=== PATIENT | female | born 1945 | race Caucasian/White ===

== ENCOUNTER 2016-09-13 11:54 | Emergency (ER) | payer OTHER ==
[2016-09-13 12:00] VITALS: BMI 21.2
--- NOTE | 2016-09-13 12:01 | PDOC ---
History of Present Illness - General Chief Complaint: Respiratory Stated Complaint: COUGH Time Seen by Provider: 09/13/16 12:01 History Source: Patient, Family, Old Records Exam Limitations: No Limitations - History of Present Illness Initial Comments: 09/13/16 12:05 71 y/o female with h/o HTN and CVA x 2 many years ago presents to the ED with her family stating that she has had 9 day h/o non-productive cough and subjective fevers and chills at home. She states that she has chronic chest pain and difficulty breathing but over the past week the pain is worsened when she coughs. She denies LE edema. She has had a sick contact at home--her grandson has had fever and URI Sx., Past History - Past Medical History Allergies/Adverse Reactions: Allergies Allergy/AdvReac Type Severity Reaction Status Date / Time Penicillins Allergy Verified 09/13/16 11:55 Home Medications: Ambulatory Orders Amlodipine Besylate 5 mg PO DAILY 09/13/16 Clopidogrel Bisulfate [Clopidogrel] 75 mg PO DAILY 09/13/16 Metoprolol Succinate [Toprol Xl -] 25 mg PO DAILY 09/13/16 Oseltamivir Phosphate [Tamiflu] 75 mg PO BID #10 capsule 09/13/16 CVA: Yes HTN: Yes - Psycho/Social/Smoking Cessation Hx Anxiety: No Suicidal Ideation: No Smoking History: Never smoked Information on smoking cessation initiated: No Hx Alcohol Use: No Drug/Substance Use Hx: No Review of Systems - Review of Systems Able to Perform ROS?: Yes Is the patient limited Somali proficient: Yes Constitutional: Yes: Chills, Fever HEENTM: No: Symptoms Reported Respiratory: Yes: Cough, Shortness of Breath Cardiac (ROS): Yes: Chest Pain ABD/GI: No: Symptoms Reported : No: Symptoms Reported Musculoskeletal: No: Symptoms Reported Integumentary: No: Symptoms Reported *Physical Exam - Vital Signs Last Vital Signs Temp Pulse Resp BP Pulse Ox 99.2 F 83 20 144/54 99 09/13/16 11:55 09/13/16 11:55 09/13/16 11:55 09/13/16 11:55 09/13/16 11:55 - Physical Exam Comments: 09/13/16 12:04 GENERAL: Well developed, well nourished. Awake and alert. No acute distress. HEENT: Normocephalic, atraumatic. PERRLA, EOMI. No conjunctival pallor. Sclera are non- icteric. Moist mucous membranes. Oropharynx is clear. NECK: Supple. Full ROM. No JVD. No lymphadenopathy. CARDIOVASCULAR: Regular rate and rhythm. There is a systolic murmur. No rubs, or gallops. Distal pulses are 2+ and symmetric. PULMONARY: No evidence of respiratory distress. Lungs clear to auscultation bilaterally. No wheezing, rales or rhonchi. ABDOMINAL: Soft. Non-tender. Non-distended. No rebound or guarding. No organomegaly. Normoactive bowel sounds. MUSCULOSKELETAL Normal range of motion at all joints. No bony deformities or tenderness. No CVA tenderness. EXTREMITIES: No cyanosis. No clubbing. No edema. No calf tenderness. SKIN: Warm and dry. Normal capillary refill. No rashes. No jaundice. NEUROLOGICAL: Alert, awake, appropriate. Cranial nerves 2-12 intact. Grossly non-focal exam. PSYCHIATRIC: Cooperative. Good eye contact. Appropriate mood and affect. ED Treatment Course - LABORATORY CBC & Chemistry Diagram: 09/13/16 12:15 09/13/16 12:15 Medical Decision Making - Medical Decision Making 09/13/16 12:07 71 y/o female with h/o HTN and CVA who presents to the ED with c/o 9 day h/o cough, fevers and chills as well as CP and SOB. Her rectal temp is 100.2F in the ED and her oxygen saturation is 99% on RA. DDx includes but is not limited to:influenza, PNA, CHF, ACS, electrolyte abnormality, dehydration, toxic/ metabolic derangement. Plan: 1. EKG 2. Labs and urine 3. CXR 4. Influenza PCR 5. Observe and re-evaluate 09/13/16 13:55 Addendum:P Labs results were reviewed and are noted in the EMR. The patient has tested positive for influenza A. Her CXR shows ?LLL infiltrate. The patient is oxygenating well and has no elevated WBC. Since she is elderly, I will treat with Tamiflu 75mg BID x 5 days. I have instructed the patient ot follow-up with her PCP within 3 days. I have also instructed the patient to return to the ED if her Sx persist, worsen or new Sx arise. *DC/Admit/Observation/Transfer Diagnosis at time of Disposition: URI due to influenza A virus Diagnosis at time of Disposition: (Ruled Out): URI, acute - Discharge Dispostion Disposition: HOME Condition at time of disposition: Stable Admit: No - Prescriptions Prescriptions: Oseltamivir Phosphate [Tamiflu] 75 mg PO BID #10 capsule - Patient Instructions Printed Discharge Instructions: DI for Influenza -- Adult Additional Instructions: You have tested positive for influenza A. You have been given one dose of Tamiflu inthe ED and have been prescribed Tamiflu 75mg--take one tablet twice per day for the next 5 days. Please follow-up with your primary care physician within the next 3 days. You may take Tylenol or Motrin for fever. Return to the Emergency Department if your symptoms persist, worsen or new symptoms arise. Print Language: [place]
[2016-09-13] MEDS ORDERED: ACETAMINOPHEN 500 MG TABLET (FP) PO ONE (12:34)
[2016-09-13 12:39] LABS: BASOPHIL 0.3 % (0-2.0); EOSINOPHIL 0.2 % (0-4.5); MCH 28.5 pg (25.7-33.7); MCHC 32.6 g/dl (32.0-36.0); MEAN CELL VOLUME 87.4 fl (80-96); MEAN PLT VOLUME 7.1 fl (7.5-11.1); NEUTROPHILS 50.8 % (42.8-82.8); PLATELET COUNT 220 K/MM3 (134-434); RDW 12.8 % (11.6-15.6); WHITE BLOOD COUNT 5.7 K/mm3 (4.0-10.0)
[2016-09-13] MEDS ORDERED: ACETAMINOPHEN 325 MG TABLET (FP) ONE (12:48)
[2016-09-13 13:02] LABS: ALBUMIN 3.4 g/dl (3.5-5.0); BILIRUBIN,TOTAL 0.6 mg/dl (0.2-1.0); CALCIUM 10.1 mg/dl (8.4-10.2); CPK(DFH) 58 IU/L (26-140); PHOSPHOROUS 3.4 mg/dl (2.5-4.6); TOT PROT 8.4 g/dl (6.4-8.3)
[2016-09-13 13:27] LABS: TROPONIN I (DFP) < 0.03 ng/ml (0.03-0.50)
[2016-09-13] MEDS ORDERED: OSELTAMIVIR PHOSPHATE 75 MG CAPSULE PO ONE (13:50)
[2016-09-13] MEDS ORDERED: OSELTAMIVIR PHOSPHATE 75 MG CAPSULE ONE (13:51)
[2016-09-13 14:12] VITALS: BP 132/58; PULSE 86; TEMP 98.2
--- NOTE | 2016-09-13 23:32 | EKG ---
Test Reason : Blood Pressure : / mmHG Vent. Rate : 068 BPM Atrial Rate : 068 BPM P-R Int : 156 ms QRS Dur : 118 ms QT Int : 408 ms P-R-T Axes : 067 087 062 degrees QTc Int : 433 ms NORMAL SINUS RHYTHM RIGHT BUNDLE BRANCH BLOCK ABNORMAL ECG WHEN COMPARED WITH ECG OF 02-OCT-2010 09:03, RIGHT BUNDLE BRANCH BLOCK IS NOW PRESENT Confirmed by AZALIA CONWAY, ERVIN ([id number]) on 09/13/2016 11:31:36 PM Referred By: MD SEPULVEDA Confirmed By:ERVIN VIEYRA MD
== END 2016-09-13 14:10 | disposition home or self-care (01) ==
LOC: FER 11:54
DX: J09.X2 Influenza due to identified novel influenza A virus with other respiratory manifestations (principal); I10 Essential (primary) hypertension; Z86.73 Personal history of transient ischemic attack (TIA), and cerebral infarction without residual deficits
CPT/HCPCS: 36415; 71010-TC; 80053; 82550; 83605; 83735; 83880; 84100; 84484; 85025; 87804; 93005; 99285-25

== ENCOUNTER 2018-04-08 18:17 | Inpatient (IN) | payer OTHER ==
--- NOTE | 2018-04-08 18:32 | PDOC ---
History of Present Illness - General History Source: Patient Exam Limitations: No Limitations - History of Present Illness Initial Comments: 04/08/18 19:25 The patient is a 72 year old female with a significant PMH of a stroke about 20 years ago (on plavix), hypertension, diabetes, depression and CVA who presents to the emergency department with hematuria today. The patients daughter reports that the patient was seen at [facility] about 2 days ago by which she was diagnosed with a UTI. the patient's family states that today, they noticed blood in her urine with clots. The patient denies any dysuria or other urinary symptoms. She denies any abdominal pain. The patient denies any other symptoms. She denies any fever, chills, nausea, vomit, diarrhea and constipation. She denies chest pain, shortness of breath, headache and dizziness. The patient denies any other complaints. PCP: Dr. Landaverde <J Carlos Miller - Last Filed: 04/08/18 19:25> <Claudia Torres - Last Filed: 04/10/18 12:27> - General Chief Complaint: Hematuria Stated Complaint: HEMATURIA Time Seen by Provider: 04/08/18 18:18 Past History <J Carlos Miller - Last Filed: 04/08/18 19:25> - Past Medical History CVA: Yes HTN: Yes - Suicide/Smoking/Psychosocial Hx Smoking History: Never smoked Hx Alcohol Use: No Drug/Substance Use Hx: No <Claudia Torres - Last Filed: 04/10/18 12:27> - Past Medical History Allergies/Adverse Reactions: Allergies Allergy/AdvReac Type Severity Reaction Status Date / Time Penicillins Allergy Verified 04/08/18 18:23 Home Medications: Ambulatory Orders Amlodipine Besylate 10 mg PO DAILY 09/13/16 Metoprolol Succinate [Toprol Xl -] 50 mg PO DAILY 09/13/16 Amitriptyline HCl 25 mg PO DAILY 04/08/18 Calcium Carbonate/Vitamin D3 [Calcium 600 + D3 Softgel] 1 each PO DAILY Clopidogrel Bisulfate [Clopidogrel] 75 mg PO DAILY 04/08/18 Hydrochlorothiazide [Hctz -] 25 mg PO DAILY 04/08/18 Levofloxacin [Levaquin] 250 mg PO DAILY 04/08/18 Naproxen 500 mg PO BID 04/08/18 Omeprazole 20 mg PO DAILY 04/08/18 Review of Systems - Review of Systems Able to Perform ROS?: Yes Comments:: 04/08/18 19:25 GENERAL/CONSTITUTIONAL: No fever or chills. No weakness. HEAD, EYES, EARS, NOSE AND THROAT: No change in vision. No ear pain or discharge. No sore throat. CARDIOVASCULAR: No chest pain or shortness of breath. RESPIRATORY: No cough, wheezing, or hemoptysis. GASTROINTESTINAL: No nausea, vomiting, diarrhea or constipation. GENITOURINARY: (+) Hematuria. No dysuria, frequency, or change in urination. MUSCULOSKELETAL: No joint or muscle swelling or pain. No neck or back pain. SKIN: No rash NEUROLOGIC: No headache, vertigo, loss of consciousness, or change in strength/ sensation. ENDOCRINE: No increased thirst. No abnormal weight change. HEMATOLOGIC/LYMPHATIC: No anemia, easy bleeding, or history of blood clots. ALLERGIC/IMMUNOLOGIC: No hives or skin allergy. <J Carlos Miller - Last Filed: 04/08/18 19:25> *Physical Exam - Vital Signs Last Vital Signs Temp Pulse Resp BP Pulse Ox 98.0 F 89 18 123/42 99 04/08/18 18:17 04/08/18 18:17 04/08/18 18:17 04/08/18 18:17 04/08/18 18:17 - Physical Exam Comments: 04/08/18 19:26 GENERAL: Awake, alert, and fully oriented, in no acute distress HEAD: No signs of trauma EYES: (+0dry conjunctiva. PERRLA, EOMI, sclera anicteric ENT: Auricles normal inspection, hearing grossly normal, nares patent, oropharynx clear without exudates. Moist mucosa NECK: Normal ROM, supple, no lymphadenopathy, JVD, or masses LUNGS: Breath sounds equal, clear to auscultation bilaterally. No wheezes, and no crackles HEART: Regular rate and rhythm, normal S1 and S2, no murmurs, rubs or gallops ABDOMEN: Soft, nontender, normoactive bowel sounds. No guarding, no rebound. No masses EXTREMITIES: Normal range of motion, no edema. No clubbing or cyanosis. No cords, erythema, or tenderness NEUROLOGICAL: Cranial nerves II through XII grossly intact. Normal speech, normal gait SKIN: Warm, Dry, normal turgor, no rashes or lesions noted. <J Carlos Miller - Last Filed: 04/08/18 19:25> ED Treatment Course - LABORATORY CBC & Chemistry Diagram: 04/08/18 18:50 04/08/18 18:50 - ADDITIONAL ORDERS Additional order review: Laboratory Results 04/08/18 08 18:50 18:30 PT with INR 14.2 H INR 1.27 H Urine Color Rebecca Urine Appearance Cloudy Urine pH 6.5 Ur Specific [place] 1.015 Urine Protein 3+ H Urine Glucose (UA) Negative Urine Ketones Trace Urine Blood 3+ H Urine Nitrite Positive Urine Bilirubin 2+ H Urine Urobilinogen 1.0 Ur Leukocyte Esterase 1+ H Urine RBC >100 Urine WBC 10-20 Ur Epithelial Cells Few Amorphous Urates Few Urine Bacteria Few 04/08/18 18:50 RBC 3.87 MCV 89.7 MCHC 32.8 RDW 12.6 MPV 7.8 Neutrophils % 61.7 Lymphocytes % 30.3 Monocytes % 7.3 Eosinophils % 0.4 Basophils % 0.3 <J Carlos Miller - Last Filed: 04/08/18 19:25> - LABORATORY CBC & Chemistry Diagram: 04/10/18 07:00 04/10/18 07:00 <Claudia Torres - Last Filed: 04/10/18 12:27> Medical Decision Making - Medical Decision Making 04/08/18 18:29 a/p: 72yo female with hx of cva 20yrs ago on plavix for the cva presents for eval of hematuria -hematuria started on Monday - pt seen at [facility] and dx with a UTI - given abx. Pt underwent labs and ct imaging at the time -today passing clots and urine stream weak. -no f/c -no abd pain, no n/v/d. -over last few months - decreased PO intake -family at the bedside, pt is hungarian speaking -will send labs, ua, ucx -will call [facility] for CT imaging results -pt currently on levaquin for the UTI from [facility] 04/08/18 18:51 ua +blood, protein, leuk esterase, micro pending 04/08/18 18:52 pt with hematuria and dx with a uti on monday at [facility]. Currently on Levaquin 250mg po daily. Labs pending. Pt is nontoxic in appearance. Family concerned because she was passing clots, however, no abd pain, no n/v/d, no f/c. Pt will be signed out to the oncoming ED physician pending labs and obtain data from [facility]. Family updated on the plan. <Claudia Torres - Last Filed: 04/10/18 12:27> *DC/Admit/Observation/Transfer - Attestations Scribe Attestion: 04/08/18 19:26 Documentation prepared by J Carlos Miller, acting as ophthalmic medical technologist for Claudia Torres MD. <J Carlos Miller - Last Filed: 04/08/18 19:25> - Attestations Physician Attestion: 04/08/18 18:54 I, Dr. Claudia Torres, DO, attest that this document has been prepared under my direction and personally reviewed by me in its entirety. I further attest, that it accurately reflects all work, treatment, procedures and medical decision -making performed by me. <Claudia Torres - Last Filed: 04/10/18 12:27> Diagnosis at time of Disposition: Acute cystitis with hematuria
[2018-04-08 18:50] LABS: PH,URINE 6.5 (4.5-8); URINE APPEARANCE Cloudy; URINE BILIRUBIN 2+ (NEGATIVE); URINE COLOR Amber; URINE GLUCOSE (UA) Negative (NEGATIVE); URINE KETONE Trace (NEGATIVE); URINE LEUK ESTERASE 1+ (NEGATIVE); URINE NITRITE Positive (NEGATIVE); URINE PROTEIN 3+ (NEGATIVE)
[2018-04-08 19:04] LABS: AMORP URATES FEW /hpf (NONE SEEN); EPI CELLS FEW /HPF; URINE BACTERIA FEW /hpf (NEGATIVE); URINE RBC >100 /hpf (0-3)
[2018-04-08 19:15] LABS: BASO % 0.3 % (0-2.0); EOS % 0.4 % (0-4.5); HEMATOCRIT 34.7 % (32.4-45.2); HEMOGLOBIN 11.4 GM/dl (10.7-15.3); LYMPH % 30.3 % (8-40); MCH 29.4 pg (25.7-33.7); MCHC 32.8 g/dl (32.0-36.0); MEAN CELL VOLUME 89.7 fl (80-96); MEAN PLT VOLUME 7.8 fl (7.5-11.1); MONO % 7.3 % (3.8-10.2); NEUT % 61.7 % (42.8-82.8); PLATELET COUNT 295 K/MM3 (134-434); RBC 3.87 M/mm3 (3.60-5.2); RDW 12.6 % (11.6-15.6); WHITE BLOOD COUNT 9.7 K/mm3 (4.0-10.8)
[2018-04-08 19:20] LABS: INR 1.27 (0.82-1.09); PROTHROMBIN TIME (PATIENT) 14.2 SEC (10.2-13.0)
[2018-04-08 19:22] LABS: ALBUMIN 3.1 g/dl (3.5-5.0); ALK PHOS 99 U/L (32-92); ANION GAP 8 MMOL/L (8-16); BILIRUBIN,TOTAL 0.9 mg/dl (0.2-1.0); BLOOD UREA NITROGEN 41 mg/dl (7-18); CALCIUM 9.9 mg/dl (8.4-10.2); CHLORIDE 101 mmol/L (98-107); CO2 23 mmol/L (22-28); CREATININE 2.2 mg/dl (0.6-1.3); GLUCOSE,RANDOM 179 mg/dl (74-106); POTASSIUM 4.1 mmol/L (3.5-5.1); SGOT/AST 27 U/L (10-42); SGPT/ALT 8 U/L (10-40); SODIUM 132 mmol/L (136-145); TOT PROT 8.2 g/dl (6.4-8.3)
--- NOTE | 2018-04-08 19:53 | PDOC ---
*Physical Exam - Vital Signs Last Vital Signs Temp Pulse Resp BP Pulse Ox 98.0 F 89 18 123/42 99 04/08/18 18:17 04/08/18 18:17 04/08/18 18:17 04/08/18 18:17 04/08/18 18:17 - Physical Exam General Appearance: Yes: Nourished Cardiovascular: positive: Regular Rhythm ED Treatment Course - LABORATORY CBC & Chemistry Diagram: 04/08/18 18:50 04/08/18 18:50 - ADDITIONAL ORDERS Additional order review: Laboratory Results 04/08/18 04/08/18 04/08/18 18:50 18:50 18:50 PT with INR 14.2 H INR 1.27 H PTT (Actin FS) Sodium 132 L Potassium 4.1 Chloride 101 Carbon Dioxide 23 Anion Gap 8 BUN 41 H Creatinine 2.2 H Creat Clearance w eGFR 21.94 Random Glucose 179 H D Calcium 9.9 Magnesium 2.0 Total Bilirubin 0.9 AST 27 ALT 8 L D Alkaline Phosphatase 99 H Total Protein 8.2 Albumin 3.1 L Urine Color Urine Appearance Urine pH Ur Specific [place] Urine Protein Urine Glucose (UA) Urine Ketones Urine Blood Urine Nitrite Urine Bilirubin Urine Urobilinogen Ur Leukocyte Esterase Urine RBC Urine WBC Ur Epithelial Cells Amorphous Urates Urine Bacteria Blood Type Cancelled Antibody Screen Cancelled 04/08/18 04/08/18 18:50 18:30 PT with INR INR PTT (Actin FS) 32.1 Sodium Potassium Chloride Carbon Dioxide Anion Gap BUN Creatinine Creat Clearance w eGFR Random Glucose Calcium Magnesium Total Bilirubin AST ALT Alkaline Phosphatase Total Protein Albumin Urine Color Rebecca Urine Appearance Cloudy Urine pH 6.5 Ur Specific [place] 1.015 Urine Protein 3+ H Urine Glucose (UA) Negative Urine Ketones Trace Urine Blood 3+ H Urine Nitrite Positive Urine Bilirubin 2+ H Urine Urobilinogen 1.0 Ur Leukocyte Esterase 1+ H Urine RBC >100 Urine WBC 10-20 Ur Epithelial Cells Few Amorphous Urates Few Urine Bacteria Few Blood Type Antibody Screen 04/08/18 18:50 RBC 3.87 MCV 89.7 MCHC 32.8 RDW 12.6 MPV 7.8 Neutrophils % 61.7 Lymphocytes % 30.3 Monocytes % 7.3 Eosinophils % 0.4 Basophils % 0.3 Medical Decision Making - Medical Decision Making 04/09/18 00:05 Patient signed out to me pending labs was seen and diagnosed with cystitis status post CT scan labs and urinalysis at noon at [facility] on Monday has had hematuria and passage of clots today returned to near [facility] for continued passage of blood clots however secondary to long wait patient and family decided to come to [facility] for evaluation Here in the emergency department her laboratory analysis is notable for creatinine of 2.2. I had blood work faxed from [facility] a urine culture has not been resulted yet her creatinine on Monday was 1.71 year ago creatinine was 1.0 given creatinine today of 2.2 we will observe the patient overnight for IV fluids for further management of acute kidney injury. *DC/Admit/Observation/Transfer Diagnosis at time of Disposition: Acute cystitis with hematuria - Discharge Dispostion Decision to Admit order: Yes - Referrals - Patient Instructions - Post Discharge Activity
[2018-04-08] MEDS ORDERED: SODIUM CHLORIDE 0.9% 1000 ML INFUS.BAG IV ONE (20:43)
--- NOTE | 2018-04-08 22:07 | HP ---
CHIEF COMPLAINT: hematuria PCP: Saima HISTORY OF PRESENT ILLNESS: This is a 72 year old female with a significant past medical history of CVA on plavix, HTN, preDM who presented to the ED with hematuria with clots. Pt was evaluated at [facility] for same on Monday night into Monday. She was diagnosed with a UTI and started on levaquin. She came to the ED because the family noticed she passed a blood clot when they were showering her around noon. Pt denies pain, dysuria, frequency. Family reports that she is normally incontinent of urine. NO further clots since noon. diapers are wet as normal. ER course was notable for: (1) Cr 2.2 (2) u/a with RBC and WBC (3) Na 132 Recent Travel: pt denies PAST MEDICAL HISTORY: CVA 20+ years ago, HTN, preDM, Depression PAST SURGICAL HISTORY: pt denies Social History: Smoking: pt denies Alcohol: pt denies Drugs: pt denies Family History: mother age 99, h/o HTN father age 95, h/o "cardiac condition" and Alzheimers brother stomach ca, h/o DM brother , DM, ESRD/dialysis 2 sisters alive with HTN Allergies Penicillins Allergy (Verified 04/08/18 18:23)-family reports anaphylaxis HOME MEDICATIONS: 3 Medication Instructions Recorded Amlodipine Besylate 10 mg PO DAILY 09/13/16 Metoprolol Succinate [Toprol Xl -] 50 mg PO DAILY 09/13/16 Amitriptyline HCl 25 mg PO DAILY 04/08/18 Calcium Carbonate/Vitamin D3 1 each PO DAILY 04/08/18 [Calcium 600 + D3 Softgel] Clopidogrel Bisulfate [Clopidogrel] 75 mg PO DAILY 04/08/18 Hydrochlorothiazide [Hctz -] 25 mg PO DAILY 04/08/18 Levofloxacin [Levaquin] 250 mg PO DAILY 04/08/18 Naproxen 500 mg PO BID 04/08/18 Omeprazole 20 mg PO DAILY 04/08/18 REVIEW OF SYSTEMS CONSTITUTIONAL: Absent: fever, chills, diaphoresis, generalized weakness, malaise, loss of appetite, weight change HEENT: Absent: rhinorrhea, nasal congestion, throat pain, throat swelling, difficulty swallowing, mouth swelling, ear pain, eye pain, visual changes CARDIOVASCULAR: Absent: chest pain, syncope, palpitations, irregular heart rate, lightheadedness , peripheral edema RESPIRATORY: Absent: cough, shortness of breath, dyspnea with exertion, orthopnea, wheezing, stridor, hemoptysis GASTROINTESTINAL: Absent: abdominal pain, abdominal distension, nausea, vomiting, diarrhea, constipation, melena, hematochezia GENITOURINARY: Present: hematuria Absent: dysuria, frequency, urgency, hesitancy, flank pain, genital pain MUSCULOSKELETAL: Absent: myalgia, arthralgia, joint swelling, back pain, neck pain SKIN: Absent: rash, itching, pallor HEMATOLOGIC/IMMUNOLOGIC: Absent: easy bleeding, easy bruising, lymphadenopathy, frequent infections ENDOCRINE: Absent: unexplained weight gain, unexplained weight loss, heat intolerance, cold intolerance NEUROLOGIC: Absent: headache, focal weakness or paresthesias, dizziness, unsteady gait, seizure, mental status changes, bladder or bowel incontinence PSYCHIATRIC: Absent: anxiety, depression, suicidal or homicidal ideation, hallucinations. PHYSICAL EXAMINATION 3 04/08/18 18:17 Temperature 98.0 F Pulse Rate 89 Respiratory 18 Rate Blood Pressure 123/42 O2 Sat by Pulse 99 Oximetry (%) GENERAL: Awake, alert, and fully oriented, in no acute distress. HEAD: Normal with no signs of trauma. EYES: Pupils equal, round and reactive to light, extraocular movements intact, sclera anicteric, conjunctiva clear. No lid lag. EARS, NOSE, THROAT: Ears normal, nares patent, oropharynx clear without exudates. Moist mucous membranes. NECK: Normal range of motion, supple without lymphadenopathy, JVD, or masses. LUNGS: Breath sounds equal, clear to auscultation bilaterally. No wheezes, and no crackles. No accessory muscle use. HEART: Regular rate and rhythm, normal S1 and S2 without murmur, rub or gallop. ABDOMEN: Soft, nontender, not distended, normoactive bowel sounds, no guarding, no rebound, no masses. No hepatomegaly or splenomegaly. MUSCULOSKELETAL: Normal range of motion at all joints. No bony deformities or tenderness. No CVA tenderness. UPPER EXTREMITIES: 2+ pulses, warm, well-perfused. No cyanosis. No clubbing. No peripheral edema. LOWER EXTREMITIES: 2+ pulses, warm, well-perfused. No calf tenderness. No peripheral edema. NEUROLOGICAL: Cranial nerves II-XII intact. Normal speech. Normal gait. PSYCHIATRIC: Cooperative. Good eye contact. Appropriate mood and affect. SKIN: Warm, dry, normal turgor, no rashes or lesions noted, normal capillary refill. skin tear right buttock Laboratory Results - last 24 hr 3 04/08/18 04/08/18 04/08/18 18:30 18:50 18:50 WBC RBC Hgb Hct MCV MCH MCHC RDW Plt Count MPV Absolute Neuts (auto) Neutrophils % Lymphocytes % Monocytes % Eosinophils % Basophils % PT with INR INR PTT (Actin FS) 32.1 Sodium 132 L Potassium 4.1 Chloride 101 Carbon Dioxide 23 Anion Gap 8 BUN 41 H Creatinine 2.2 H Creat Clearance w eGFR 21.94 Random Glucose 179 H D Calcium 9.9 Magnesium 2.0 Total Bilirubin 0.9 AST 27 ALT 8 L D Alkaline Phosphatase 99 H Total Protein 8.2 Albumin 3.1 L Urine Color Rebecca Urine Appearance Cloudy Urine pH 6.5 Ur Specific [place] 1.015 Urine Protein 3+ H Urine Glucose (UA) Negative Urine Ketones Trace Urine Blood 3+ H Urine Nitrite Positive Urine Bilirubin 2+ H Urine Urobilinogen 1.0 Ur Leukocyte Esterase 1+ H Urine RBC >100 Urine WBC 10-20 Ur Epithelial Cells Few Amorphous Urates Few Urine Bacteria Few Blood Type Antibody Screen 3 04/08/18 04/08/18 04/08/18 18:50 18:50 18:50 WBC 9.7 RBC 3.87 Hgb 11.4 Hct 34.7 MCV 89.7 MCH 29.4 MCHC 32.8 RDW 12.6 Plt Count 295 MPV 7.8 Absolute Neuts (auto) 6.1 Neutrophils % 61.7 Lymphocytes % 30.3 Monocytes % 7.3 Eosinophils % 0.4 Basophils % 0.3 PT with INR 14.2 H INR 1.27 H PTT (Actin FS) Sodium Potassium Chloride Carbon Dioxide Anion Gap BUN Creatinine Creat Clearance w eGFR Random Glucose Calcium Magnesium Total Bilirubin AST ALT Alkaline Phosphatase Total Protein Albumin Urine Color Urine Appearance Urine pH Ur Specific [place] Urine Protein Urine Glucose (UA) Urine Ketones Urine Blood Urine Nitrite Urine Bilirubin Urine Urobilinogen Ur Leukocyte Esterase Urine RBC Urine WBC Ur Epithelial Cells Amorphous Urates Urine Bacteria Blood Type Cancelled Antibody Screen Cancelled ECG Normal sinus rhythm vent rate 74, QTC 477 RBBB new T wave inversions lead 3 & v3 when c/w ECG 09/13/[address] Abd/pelvis with/without contrast @ [facility] 04/07/18 Impression: Distended, thick walled bladder with no focal intraluminal mass or filling defect. Findings may be secondary to cystitis. Correlate with urinalysis and symptoms. Normal kidneys and ureters with no hydronephrosis, renal stone, renal mass or ureteral filling defect. No evidence of malignancy within the abdomen or pelvis. Mosaic attenuation and ground-glass opacities scattered through both lower lobes may be secondary to pulmonary venous congestion. No large pleural effusion or consolidation. ASSESSMENT/PLAN: 72yF with PMH CVA 20+ years ago, HTN, preDM, Depression presented to the ED with hematuria with clots. UTI with hematuria - cont home levaquin po x 5 more days, follow culture results. Culture not sent from [facility] with labs/CT, f/u in am - if hematuria not improving, urology consult - hold home plavix and naproxen NESS - cr 2.2 today, 1.7 04/07/17 and 1.0 on 09/13/16 - received IV contrast at [facility], ? partial MERY? as well as hypovolemia (BUN 41 ) - cont gentle IV hydration, if not improved on am labs, renal consult - hold home naproxen hyponatremia - mild - hold HCTZ, renal consult if not improving on am labs HTN - cont home norvasc and toprol preDM - Glucose 179, A1C ordered - BGM AC/HS with novolog SS DVT PPX - hold heparin due to bleeding FEN - NS @ 75cc/hr - bmp in am - low sodium/diabetic diet as tolerated Dispo: Pt currently requires further observation. Visit type - Emergency Visit Emergency Visit: Yes ED Registration Date: 04/08/18 Care time: The patient presented to the Emergency Department on the above date and was hospitalized for further evaluation of their emergent condition. - New Patient This patient is new to me today: Yes Date on this admission: 04/09/18 - Critical Care Critical Care patient: No Hospitalist Screening - Colonoscopy Questionnaire Colonoscopy Questionnaire: Colonoscopy Questionnaire - Patient: 50 - 75 years old and never had a screening colonoscopy: Yes History of colon or rectal polyps, or CA: No History of IBD, Crohn's disease or UC: No History of abdominal radiation therapy as a child: No - Relative: 1 with colon or rectal CA, or polyps at age 60 or younger: No Colon or rectal CA diagnosed at age 45 or younger: No Multiple relatives with colon or rectal CA: No - Outcome: Screening Result: Positive Screen
[2018-04-08] MEDS ORDERED: SODIUM CHLORIDE 1,000 ML IV SCH (22:45)
[2018-04-09 00:35] VITALS: BMI 23.8
[2018-04-09] MEDS: INSULIN SLIDING SCALE (NOVOLOG) 1 VIAL SQ SCH ×4 (06:33→22:03)
--- NOTE | 2018-04-09 07:40 | PN ---
Physical Exam: SUBJECTIVE: Patient seen and examined, patient reports feeling much improved, does report generalized weakness, pink tinged urine noted this AM OBJECTIVE:This is a 72 year old female with a significant past medical history of CVA on plavix, HTN, preDM, patient was admitted from the emergency department for hematuria. Vital Signs Period Temp Pulse Resp BP Sys/Mcmullen Pulse Ox Last 24 Hr 98.0 F-98.1 F 72-89 18-18 123-128/38-42 98-99 GENERAL: The patient is awake, alert, and fully oriented, in no acute distress. HEAD: Normal with no signs of trauma. EYES: PERRL, extraocular movements intact, sclera anicteric, conjunctiva clear. No ptosis. ENT: Ears normal, nares patent, oropharynx clear without exudates, moist mucous membranes. NECK: Trachea midline, full range of motion, supple. LUNGS: Breath sounds equal, clear to auscultation bilaterally, no wheezes, no crackles, no accessory muscle use. HEART: Regular rate and rhythm, S1, S2 without murmur, rub or gallop. ABDOMEN: Soft, nontender, nondistended, normoactive bowel sounds, no guarding, no rebound, no hepatosplenomegaly, no masses. : blood tinged urine noted on incontinence brief, limited pelvic exam secondary to ROM of bilateral hips, no obivious bleeding noted to vaginal openning EXTREMITIES: 2+ pulses, warm, well-perfused, no edema. NEUROLOGICAL: Cranial nerves II through XII grossly intact. Normal speech, gait not observed. PSYCH: Normal mood, normal affect. SKIN: Warm, dry, normal turgor, no rashes or lesions noted Laboratory Results - last 24 hr CBC WBC 7.0 K/mm3 (4.0-10.8) 04/09/18 07:01 RBC 3.23 M/mm3 (3.60-5.2) L 04/09/18 07:01 Hgb 9.9 GM/dl (10.7-15.3) L 04/09/18 07:01 Hct 28.7 % (32.4-45.2) L D 04/09/18 07:01 MCV 89.0 fl (80-96) 04/09/18 07:01 MCH 30.6 pg (25.7-33.7) 04/09/18 07:01 MCHC 34.4 g/dl (32.0-36.0) 04/09/18 07:01 RDW 12.4 % (11.6-15.6) 04/09/18 07:01 Plt Count 240 K/MM3 (134-434) 04/09/18 07:01 MPV 7.3 fl (7.5-11.1) L 04/09/18 07:01 Absolute Neuts (auto) 2.8 K/mm3 04/09/18 07:01 Neutrophils % 40.7 % (42.8-82.8) L 04/09/18 07:01 Lymphocytes % 44.1 % (8-40) H 04/09/18 07:01 Monocytes % 13.0 % (3.8-10.2) H 04/09/18 07:01 Eosinophils % 1.8 % (0-4.5) 04/09/18 07:01 Basophils % 0.4 % (0-2.0) 04/09/18 07:01 CMP Sodium 136 mmol/L (136-145) 04/09/18 07:01 Potassium 3.6 mmol/L (3.5-5.1) 04/09/18 07:01 Chloride 106 mmol/L (98-107) 04/09/18 07:01 Carbon Dioxide 22 mmol/L (22-28) 04/09/18 07:01 Anion Gap 8 MMOL/L (8-16) 04/09/18 07:01 BUN 29 mg/dl (7-18) H 04/09/18 07:01 Creatinine 1.4 mg/dl (0.6-1.3) H 04/09/18 07:01 Creat Clearance w eGFR 36.96 (>60) 04/09/18 07:01 POC Glucometer 95 UNITS (80-120) 04/09/18 06:30 Random Glucose 86 mg/dl (74-106) D 04/09/18 07:01 Hemoglobin A1c % 7.0 % (4.8-6.0) H 04/09/18 07:01 Calcium 9.5 mg/dl (8.4-10.2) 04/09/18 07:01 Phosphorus 2.3 mg/dl (2.5-4.6) L D 04/09/18 07:01 Magnesium 1.9 mg/dL (1.8-2.4) 04/09/18 07:01 Total Bilirubin 0.9 mg/dl (0.2-1.0) 04/08/18 18:50 AST 27 U/L (10-42) 04/08/18 18:50 ALT 8 U/L (10-40) L D 04/08/18 18:50 Alkaline Phosphatase 99 U/L (32-92) H 04/08/18 18:50 Total Protein 8.2 g/dl (6.4-8.3) 04/08/18 18:50 Albumin 3.1 g/dl (3.5-5.0) L 04/08/18 18:50 Active Medications Generic Name Dose Route Start Last Admin Trade Name Freq PRN Reason Stop Dose Admin Amitriptyline HCl 25 mg 04/09/18 10:00 Elavil - PO DAILY [facility] Amlodipine Besylate 10 mg 04/09/18 10:00 Norvasc - PO DAILY [facility] Calcium Carbonate/Cholecalciferol 1 tab 04/09/18 10:00 Os-Johnnie 500+D - PO DAILY [facility] Sodium Chloride 1,000 mls @ 75 mls/hr 04/08/18 22:45 04/08/18 22:50 Normal Saline - IV 75 mls/hr ASDIR [facility] Administration Insulin Aspart 1 vial 04/09/18 07:00 04/09/18 06:33 Novolog Vial Sliding Scale - SQ Not Given ACHS [facility] Protocol Levofloxacin 250 mg 04/09/18 08:00 Levaquin - PO 04/13/18 06:01 DAILY@0600 [facility] Metoprolol Succinate 50 mg 04/09/18 10:00 Toprol Xl - PO DAILY [facility] Pantoprazole Sodium 20 mg 04/09/18 10:00 Protonix - PO DAILY [facility] ECG Normal sinus rhythm vent rate 74, QTC 477 RBBB new T wave inversions lead 3 & v3 when c/w ECG 09/13/[address] Abd/pelvis with/without contrast @ [facility] [place] 04/07/18 Impression: Distended, thick walled bladder with no focal intraluminal mass or filling defect. Findings may be secondary to cystitis. Correlate with urinalysis and symptoms. Normal kidneys and ureters with no hydronephrosis, renal stone, renal mass or ureteral filling defect. No evidence of malignancy within the abdomen or pelvis. Mosaic attenuation and ground-glass opacities scattered through both lower lobes may be secondary to pulmonary venous congestion. No large pleural effusion or consolidation. ASSESSMENT/PLAN: 1) UTI with hematuria - failed outpatient therapy, daughter reports patienthas anaphylaxis after penicillin will continue Levaquin - Pending ultrasound of kidney pelvis - pending urine culture 2) nephrology NESS - creatine downtrending, repeat creatine today 1.4, likely nsaid vs iv contrast induced, resolving with gentle iv hydration - continue to monitor repeat creatinine tomorrow morning 3) cardiovascular hypertension - b/p at goal, continue norvasc and toprol 4) endo predm - as per patient and family no medications, hgb a1c elevated, will require outpatient follow up - continue finger sticks achs with regular insulin sliding scale f/e/n hyponatremia - resolved after IV hydration, continue holding hctz DVT PPX - hold heparin due to bleeding FEN - NS @ 42cc/hr - bmp in am - low sodium/diabetic diet as tolerated Dispo: Pt currently requires inpatient admission Visit type - Emergency Visit Emergency Visit: Yes ED Registration Date: 04/09/18 Care time: The patient presented to the Emergency Department on the above date and was hospitalized for further evaluation of their emergent condition. - New Patient This patient is new to me today: Yes Date on this admission: 04/09/18 - Critical Care Critical Care patient: No - Discharge Referral Referred to [facility] Med P.C.: No
[2018-04-09 07:41] LABS: BASO % 0.4 % (0-2.0); EOS % 1.8 % (0-4.5); HEMATOCRIT 28.7 % (32.4-45.2); HEMOGLOBIN 9.9 GM/dl (10.7-15.3); LYMPH % 44.1 % (8-40); MCH 30.6 pg (25.7-33.7); MCHC 34.4 g/dl (32.0-36.0); MEAN PLT VOLUME 7.3 fl (7.5-11.1); NEUT % 40.7 % (42.8-82.8); PLATELET COUNT 240 K/MM3 (134-434); RBC 3.23 M/mm3 (3.60-5.2); RDW 12.4 % (11.6-15.6)
[2018-04-09 08:35] LABS: ANION GAP 8 MMOL/L (8-16); BLOOD UREA NITROGEN 29 mg/dl (7-18); CALCIUM 9.5 mg/dl (8.4-10.2); CHLORIDE 106 mmol/L (98-107); CO2 22 mmol/L (22-28); CREATININE 1.4 mg/dl (0.6-1.3); GLUCOSE,RANDOM 86 mg/dl (74-106); MAGNESIUM 1.9 mg/dL (1.8-2.4); PHOSPHOROUS 2.3 mg/dl (2.5-4.6); POTASSIUM 3.6 mmol/L (3.5-5.1); SODIUM 136 mmol/L (136-145)
[2018-04-09] MEDS: AMITRIPTYLINE HCL 25 MG TABLET (FP) PO SCH (09:58)
[2018-04-09] MEDS: PANTOPRAZOLE 20 MG TABLET (FP) PO SCH (09:59)
[2018-04-09] MEDS: CALCIUM 500MG/VIT-D 200 UNITS COMBO TABLET (FP) PO SCH (09:59)
[2018-04-09] MEDS: amLODIPine BESYLATE 10 MG TABLET (FP) PO SCH (09:59)
--- NOTE | 2018-04-09 10:27 | EKG ---
Test Reason : Blood Pressure : / mmHG Vent. Rate : 074 BPM Atrial Rate : 074 BPM P-R Int : 178 ms QRS Dur : 126 ms QT Int : 430 ms P-R-T Axes : 080 080 055 degrees QTc Int : 477 ms NORMAL SINUS RHYTHM RIGHT BUNDLE BRANCH BLOCK ABNORMAL ECG WHEN COMPARED WITH ECG OF 13-SEP-2016 12:30, NON-SPECIFIC CHANGE IN ST SEGMENT IN ANTERIOR LEADS T WAVE INVERSION MORE EVIDENT IN ANTERIOR LEADS Confirmed by RICHARD HOFFMAN MD ([id number]) on 04/09/2018 10:27:09 AM Referred By: MD MEADOWS Confirmed By:RICHARD HOFFMAN MD
[2018-04-09] MEDS: NAPH,MB-DB/K PH,MBDB POWDER PACKET PO SCH ×2 (12:00→21:38)
[2018-04-09] MEDS: MULTIVITAMINS (DAILY MVI) TABLET (FP) PO SCH (12:30)
[2018-04-09] MEDS ORDERED: CEFTRIAXONE 1 GM/50 ML BAG IVPB SCH (12:30)
[2018-04-09] MEDS: LACTOBACILLUS ACIDOPHILUS 1 TABLET PO SCH (12:30)
[2018-04-09] MEDS: SODIUM CHLORIDE 1,000 ML IV SCH (13:00)
[2018-04-10] MEDS: INSULIN SLIDING SCALE (NOVOLOG) 1 VIAL SQ SCH ×3 (07:02→22:36)
[2018-04-10 07:53] LABS: BASO % 0.3 % (0-2.0); EOS % 1.5 % (0-4.5); HEMATOCRIT 28.6 % (32.4-45.2); HEMOGLOBIN 9.5 GM/dl (10.7-15.3); LYMPH % 56.1 % (8-40); MCH 29.3 pg (25.7-33.7); MCHC 33.1 g/dl (32.0-36.0); MEAN CELL VOLUME 88.5 fl (80-96); MEAN PLT VOLUME 7.4 fl (7.5-11.1); MONO % 12.2 % (3.8-10.2); NEUT % 29.9 % (42.8-82.8); PLATELET COUNT 269 K/MM3 (134-434); RBC 3.23 M/mm3 (3.60-5.2); RDW 12.4 % (11.6-15.6); WHITE BLOOD COUNT 7.2 K/mm3 (4.0-10.8)
[2018-04-10 08:17] LABS: ALBUMIN 2.5 g/dl (3.5-5.0); ALK PHOS 82 U/L (32-92); ANION GAP 3 MMOL/L (8-16); BILIRUBIN,TOTAL 0.6 mg/dl (0.2-1.0); BLOOD UREA NITROGEN 16 mg/dl (7-18); CALCIUM 9.2 mg/dl (8.4-10.2); CHLORIDE 110 mmol/L (98-107); CO2 21 mmol/L (22-28); GLUCOSE,RANDOM 98 mg/dl (74-106); MAGNESIUM 1.6 mg/dL (1.8-2.4); PHOSPHOROUS 2.2 mg/dl (2.5-4.6); POTASSIUM 3.7 mmol/L (3.5-5.1); SGOT/AST 17 U/L (10-42); SGPT/ALT 8 U/L (10-40); SODIUM 134 mmol/L (136-145); TOT PROT 6.7 g/dl (6.4-8.3)
--- NOTE | 2018-04-10 09:36 | PN ---
Physical Exam: SUBJECTIVE: Patient seen and examined, patient reports feeling less tired denies any tactile fever. OBJECTIVE::This is a 72 year old female with a significant past medical history of CVA on plavix, HTN, preDM, patient was admitted from the emergency department for hematuria Vital Signs Period Temp Pulse Resp BP Sys/Mcmullen Pulse Ox Last 24 Hr 98.0 F-100.2 F 68-96 18-20 107-118/41-57 97-98 GENERAL: The patient is awake, alert, and fully oriented, in no acute distress. HEAD: Normal with no signs of trauma. EYES: PERRL, extraocular movements intact, sclera anicteric, conjunctiva clear. No ptosis. ENT: Ears normal, nares patent, oropharynx clear without exudates, moist mucous membranes. NECK: Trachea midline, full range of motion, supple. LUNGS: Breath sounds equal, clear to auscultation bilaterally, no wheezes, no crackles, no accessory muscle use. HEART: Regular rate and rhythm, S1, S2 without murmur, rub or gallop. ABDOMEN: Soft, nontender, nondistended, normoactive bowel sounds, no guarding, no rebound, no hepatosplenomegaly, no masses. : jessica draining pink tinged urine with sediment EXTREMITIES: 2+ pulses, warm, well-perfused, no edema. NEUROLOGICAL: Cranial nerves II through XII grossly intact. Normal speech, gait not observed. PSYCH: Normal mood, normal affect. SKIN: Warm, dry, normal turgor, no rashes or lesions noted Laboratory Results - last 24 hr 04/09/18 04/09/18 04/09/18 07:01 16:31 21:41 WBC RBC Hgb Hct MCV MCH MCHC RDW Plt Count MPV Absolute Neuts (auto) Neutrophils % Lymphocytes % Monocytes % Eosinophils % Basophils % Sodium Potassium Chloride Carbon Dioxide Anion Gap BUN Creatinine Creat Clearance w eGFR POC Glucometer 144 159 Random Glucose Hemoglobin A1c % 7.0 H Calcium Phosphorus Magnesium Total Bilirubin AST ALT Alkaline Phosphatase Total Protein Albumin 04/10/18 04/10/18 04/10/18 07:00 07:00 07:00 WBC 7.2 RBC 3.23 L Hgb 9.5 L Hct 28.6 L MCV 88.5 MCH 29.3 MCHC 33.1 RDW 12.4 Plt Count 269 MPV 7.4 L Absolute Neuts (auto) 2.2 Neutrophils % 29.9 L Lymphocytes % 56.1 H Monocytes % 12.2 H Eosinophils % 1.5 Basophils % 0.3 Sodium 134 L Potassium 3.7 Chloride 110 H Carbon Dioxide 21 L Anion Gap 3 L BUN 16 Creatinine 1.0 Creat Clearance w eGFR 54.50 POC Glucometer 104 Random Glucose 98 Hemoglobin A1c % Calcium 9.2 Phosphorus 2.2 L Magnesium 1.6 L Total Bilirubin 0.6 AST 17 D ALT 8 L Alkaline Phosphatase 82 D Total Protein 6.7 Albumin 2.5 L Active Medications Generic Name Dose Route Start Last Admin Trade Name Freq PRN Reason Stop Dose Admin Amitriptyline HCl 25 mg 04/09/18 10:00 04/09/18 09:58 Elavil - PO 25 mg DAILY [facility] Administration Amlodipine Besylate 10 mg 04/09/18 10:00 04/09/18 09:59 Norvasc - PO 10 mg DAILY [facility] Administration Calcium Carbonate/Cholecalciferol 1 tab 04/09/18 10:00 04/09/18 09:59 Os-Johnnie 500+D - PO 1 tab DAILY [facility] Administration Sodium Chloride 1,000 mls @ 42 mls/hr 04/09/18 12:53 04/09/18 13:00 Normal Saline - IV 42 mls/hr ASDIR [facility] Administration Magnesium Sulfate 2 gm in 50 mls @ 50 mls/hr 04/10/18 09:45 Magnesium Sulf 2 G/50 Ml Bag IVPB 04/10/18 10:44 ONCE ONE Insulin Aspart 1 vial 04/09/18 07:00 04/10/18 07:02 Novolog Vial Sliding Scale - SQ Not Given ACHS [facility] Protocol Lactobacillus Acidophilus 1 tab 04/09/18 12:15 04/09/18 12:30 Bacid - PO 1 tab DAILY [facility] Administration Levofloxacin 250 mg 04/10/18 06:00 04/10/18 07:02 Levaquin - PO 250 mg DAILY@0600 [facility] Administration Metoprolol Succinate 50 mg 04/09/18 10:00 04/09/18 09:59 Toprol Xl - PO 50 mg DAILY [facility] Administration Multivitamins/Minerals/Vitamin C 1 tab 04/09/18 12:15 04/09/18 12:30 Tab-A-Vit - PO 1 tab DAILY [facility] Administration Pantoprazole Sodium 20 mg 04/09/18 10:00 04/09/18 09:59 Protonix - PO 20 mg DAILY [facility] Administration Potassium Phos/Sodium Phos 1 packet 04/09/18 11:15 04/09/18 21:38 Phos-Nak Packet - PO 1 packet BID [facility] Administration Microbiology 04/08/18 18:30 Urine - Urine Clean Catch Urine Culture - Final ECG Normal sinus rhythm vent rate 74, QTC 477 RBBB new T wave inversions lead 3 & v3 when c/w ECG 09/13/[address] Abd/pelvis with/without contrast @ [facility] [place] 04/07/18 Impression: Distended, thick walled bladder with no focal intraluminal mass or filling defect. Findings may be secondary to cystitis. Correlate with urinalysis and symptoms. Normal kidneys and ureters with no hydronephrosis, renal stone, renal mass or ureteral filling defect. No evidence of malignancy within the abdomen or pelvis. Mosaic attenuation and ground-glass opacities scattered through both lower lobes may be secondary to pulmonary venous congestion. No large pleural effusion or consolidation. ultrasound of kidney/pelvis:normal kidneys no hydronephrosis moderate amount of urinary sediment urinary retention ASSESSMENT/PLAN: 1) UTI urinary retention - failed outpatient therapy, daughter reports patient has anaphylaxis after penicillin will continue Levaquin, urine culture negative to date - ultrasound of kidney and bladder reviewed continue fully appreciate the input of urology 2) nephrology NESS - resolved with gentle hydration, likely nsaid vs iv contrast induced, resolving with gentle iv hydration - continue to monitor 3) cardiovascular hypertension - b/p at goal, continue norvasc and toprol 4) endo predm - as per patient and family no medications, hgb a1c elevated, will require outpatient follow up - continue finger sticks achs with regular insulin sliding scale f/e/n -regular diet DVT PPX - hold heparin due to bleeding FEN - NS @ 42cc/hr - bmp in am - low sodium/diabetic diet as tolerated Dispo: Pt currently requires inpatient admission Visit type - Emergency Visit Emergency Visit: Yes ED Registration Date: 04/09/18 Care time: The patient presented to the Emergency Department on the above date and was hospitalized for further evaluation of their emergent condition. - New Patient This patient is new to me today: No - Critical Care Critical Care patient: No - Discharge Referral Referred to [facility] Med P.C.: No
[2018-04-10] MEDS ORDERED: MAGNESIUM SULFATE IN WATER 2 GM/50 ML IVPB IVPB ONE (09:45)
[2018-04-10] MEDS: LACTOBACILLUS ACIDOPHILUS 1 TABLET PO SCH (10:10)
[2018-04-10] MEDS: CALCIUM 500MG/VIT-D 200 UNITS COMBO TABLET (FP) PO SCH (10:10)
[2018-04-10] MEDS: AMITRIPTYLINE HCL 25 MG TABLET (FP) PO SCH (10:10)
[2018-04-10] MEDS: amLODIPine BESYLATE 10 MG TABLET (FP) PO SCH (10:10)
[2018-04-10] MEDS: MULTIVITAMINS (DAILY MVI) TABLET (FP) PO SCH (10:11)
[2018-04-10] MEDS: PANTOPRAZOLE 20 MG TABLET (FP) PO SCH (10:11)
[2018-04-10] MEDS: NAPH,MB-DB/K PH,MBDB POWDER PACKET PO SCH ×2 (10:11→22:00)
[2018-04-10] MEDS: SODIUM CHLORIDE 1,000 ML IV SCH (22:01)
[2018-04-11] MEDS: INSULIN SLIDING SCALE (NOVOLOG) 1 VIAL SQ SCH ×3 (06:36→15:08)
--- NOTE | 2018-04-11 08:14 | PN ---
Physical Exam: SUBJECTIVE: Patient seen and examined, patient is Sitting in a recliner tolerating diet reports feeling well and denies any abdominal pain or tactile fever OBJECTIVE: patient is a 72 year old female with a significant past medical history of CVA on plavix, HTN, and preDM. Patient was admitted from the emergency department for hematuria and urinary retention. Vital Signs Period Temp Pulse Resp BP Sys/Mcmullen Pulse Ox Last 24 Hr 98.2 F-98.5 F 69-92 16-18 95-124/27- 95-100 GENERAL: The patient is awake, alert, and fully oriented, in no acute distress. HEAD: Normal with no signs of trauma. EYES: PERRL, extraocular movements intact, sclera anicteric, conjunctiva clear. No ptosis. ENT: Ears normal, nares patent, oropharynx clear without exudates, moist mucous membranes. NECK: Trachea midline, full range of motion, supple. LUNGS: Breath sounds equal, clear to auscultation bilaterally, no wheezes, no crackles, no accessory muscle use. HEART: Regular rate and rhythm, S1, S2 without murmur, rub or gallop. ABDOMEN: Soft, nontender, nondistended, normoactive bowel sounds, no guarding, no rebound, no hepatosplenomegaly, no masses. : pink tinged urine draiiing through jessica cather EXTREMITIES: 2+ pulses, warm, well-perfused, no edema. NEUROLOGICAL: Cranial nerves II through XII grossly intact. Normal speech, gait not observed. PSYCH: Normal mood, normal affect. SKIN: Warm, dry, normal turgor, no rashes or lesions noted Laboratory Results - last 24 hr CBC WBC 7.9 K/mm3 (4.0-10.8) 04/11/18 08:12 RBC 3.11 M/mm3 (3.60-5.2) L 04/11/18 08:12 Hgb 9.3 GM/dl (10.7-15.3) L 04/11/18 08:12 Hct 27.9 % (32.4-45.2) L 04/11/18 08:12 MCV 89.5 fl (80-96) 04/11/18 08:12 MCH 30.0 pg (25.7-33.7) 04/11/18 08:12 MCHC 33.5 g/dl (32.0-36.0) 04/11/18 08:12 RDW 12.8 % (11.6-15.6) 04/11/18 08:12 Plt Count 264 K/MM3 (134-434) 04/11/18 08:12 MPV 7.0 fl (7.5-11.1) L 04/11/18 08:12 Absolute Neuts (auto) 3.1 K/mm3 04/11/18 08:12 Neutrophils % 39.7 % (42.8-82.8) L 04/11/18 08:12 Lymphocytes % 46.1 % (8-40) H 04/11/18 08:12 Monocytes % 12.5 % (3.8-10.2) H 04/11/18 08:12 Eosinophils % 1.4 % (0-4.5) 04/11/18 08:12 Basophils % 0.3 % (0-2.0) 04/11/18 08:12 CMP Sodium 135 mmol/L (136-145) L 04/11/18 08:12 Potassium 3.6 mmol/L (3.5-5.1) 04/11/18 08:12 Chloride 109 mmol/L (98-107) H 04/11/18 08:12 Carbon Dioxide 21 mmol/L (22-28) L 04/11/18 08:12 Anion Gap 5 MMOL/L (8-16) L 04/11/18 08:12 BUN 15 mg/dl (7-18) 04/11/18 08:12 Creatinine 0.9 mg/dl (0.6-1.3) 04/11/18 08:12 Creat Clearance w eGFR > 60 (>60) 04/11/18 08:12 POC Glucometer 109 UNITS (80-120) 04/10/18 22:05 Random Glucose 89 mg/dl (74-106) 04/11/18 08:12 Hemoglobin A1c % 7.0 % (4.8-6.0) H 04/09/18 07:01 Calcium 9.4 mg/dl (8.4-10.2) 04/11/18 08:12 Phosphorus 2.0 mg/dl (2.5-4.6) L 04/11/18 08:12 Magnesium 1.8 mg/dL (1.8-2.4) 04/11/18 08:12 Total Bilirubin 0.6 mg/dl (0.2-1.0) 04/11/18 08:12 AST 15 U/L (10-42) 04/11/18 08:12 ALT < 8 U/L (10-40) L 04/11/18 08:12 Alkaline Phosphatase 84 U/L (32-92) 04/11/18 08:12 Total Protein 6.7 g/dl (6.4-8.3) 04/11/18 08:12 Albumin 2.4 g/dl (3.5-5.0) L 04/11/18 08:12 Active Medications Generic Name Dose Route Start Last Admin Trade Name [employer] PRN Reason Stop Dose Admin Amitriptyline HCl 25 mg 04/09/18 10:00 04/10/18 10:10 Elavil - PO 25 mg DAILY [facility] Administration Amlodipine Besylate 10 mg 04/09/18 10:00 04/10/18 10:10 Norvasc - PO 10 mg DAILY [facility] Administration Calcium Carbonate/Cholecalciferol 1 tab 04/09/18 10:00 04/10/18 10:10 Os-Johnnie 500+D - PO 1 tab DAILY [facility] Administration Sodium Chloride 1,000 mls @ 42 mls/hr 04/09/18 12:53 04/10/18 22:01 Normal Saline - IV 42 mls/hr ASDIR [facility] Administration Insulin Aspart 1 vial 04/09/18 07:00 04/11/18 06:36 Novolog Vial Sliding Scale - SQ Not Given ACHS [facility] Protocol Lactobacillus Acidophilus 1 tab 04/09/18 12:15 04/10/18 10:10 Bacid - PO 1 tab DAILY [facility] Administration Levofloxacin 250 mg 04/10/18 06:00 04/11/18 06:01 Levaquin - PO 250 mg DAILY@0600 [facility] Administration Metoprolol Succinate 50 mg 04/09/18 10:00 04/10/18 10:11 Toprol Xl - PO 50 mg DAILY [facility] Administration Multivitamins/Minerals/Vitamin C 1 tab 04/09/18 12:15 04/10/18 10:11 Tab-A-Vit - PO 1 tab DAILY [facility] Administration Pantoprazole Sodium 20 mg 04/09/18 10:00 04/10/18 10:11 Protonix - PO 20 mg DAILY [facility] Administration Potassium Phos/Sodium Phos 1 packet 04/09/18 11:15 04/10/18 22:00 Phos-Nak Packet - PO 1 packet BID [facility] Administration Microbiology 04/08/18 18:30 Urine Culture - Final Urine - Urine Clean Catch ECG Normal sinus rhythm vent rate 74, QTC 477 RBBB new T wave inversions lead 3 & v3 when c/w ECG 09/13/[address] Abd/pelvis with/without contrast @ [facility] [place] 04/07/18 Impression: Distended, thick walled bladder with no focal intraluminal mass or filling defect. Findings may be secondary to cystitis. Correlate with urinalysis and symptoms. Normal kidneys and ureters with no hydronephrosis, renal stone, renal mass or ureteral filling defect. No evidence of malignancy within the abdomen or pelvis. Mosaic attenuation and ground-glass opacities scattered through both lower lobes may be secondary to pulmonary venous congestion. No large pleural effusion or consolidation. ultrasound of kidney/pelvis:normal kidneys no hydronephrosis moderate amount of urinary sediment urinary retention ASSESSMENT/PLAN: 1) UTI urinary retention - continue levaquin (04/09 - ), urine culture negative to date - ultrasound of kidney and bladder reviewed With urologist, Dr Montez, patient is pending cystcopy tommorow 2) nephrology NESS - resolved with gentle hydration and jessica, likely nsaid vs iv contrast induced vs obstructive uropathy - continue to monitor 3) cardiovascular hypertension - b/p at goal, continue norvasc and toprol 4) endo predm - as per patient and family no medications, hgb a1c elevated, will require outpatient follow up - continue finger sticks achs with regular insulin sliding scale f/e/n -regular diet DVT PPX - hold heparin due to bleeding - physical therapy - mechanical AC only FEN - bmp in am - low sodium/diabetic diet as tolerated Dispo: Pt currently requires inpatient admission Visit type - Emergency Visit Emergency Visit: Yes ED Registration Date: 04/09/18 Care time: The patient presented to the Emergency Department on the above date and was hospitalized for further evaluation of their emergent condition. - New Patient This patient is new to me today: No - Critical Care Critical Care patient: No - Discharge Referral Referred to [facility] Med P.C.: No
[2018-04-11 08:23] LABS: BASO % 0.3 % (0-2.0); EOS % 1.4 % (0-4.5); HEMATOCRIT 27.9 % (32.4-45.2); HEMOGLOBIN 9.3 GM/dl (10.7-15.3); LYMPH % 46.1 % (8-40); MCHC 33.5 g/dl (32.0-36.0); MEAN CELL VOLUME 89.5 fl (80-96); MONO % 12.5 % (3.8-10.2); NEUT % 39.7 % (42.8-82.8); PLATELET COUNT 264 K/MM3 (134-434); RBC 3.11 M/mm3 (3.60-5.2); RDW 12.8 % (11.6-15.6); WHITE BLOOD COUNT 7.9 K/mm3 (4.0-10.8)
[2018-04-11 09:05] LABS: ALBUMIN 2.4 g/dl (3.5-5.0); ALK PHOS 84 U/L (32-92); ANION GAP 5 MMOL/L (8-16); BILIRUBIN,TOTAL 0.6 mg/dl (0.2-1.0); BLOOD UREA NITROGEN 15 mg/dl (7-18); CALCIUM 9.4 mg/dl (8.4-10.2); CHLORIDE 109 mmol/L (98-107); CO2 21 mmol/L (22-28); CREATININE 0.9 mg/dl (0.6-1.3); GLUCOSE,RANDOM 89 mg/dl (74-106); MAGNESIUM 1.8 mg/dL (1.8-2.4); POTASSIUM 3.6 mmol/L (3.5-5.1); SGOT/AST 15 U/L (10-42); SODIUM 135 mmol/L (136-145); TOT PROT 6.7 g/dl (6.4-8.3)
[2018-04-11 09:12] LABS: SGPT/ALT < 8 U/L (10-40)
[2018-04-11] MEDS: LACTOBACILLUS ACIDOPHILUS 1 TABLET PO SCH (09:31)
[2018-04-11] MEDS: PANTOPRAZOLE 20 MG TABLET (FP) PO SCH (09:31)
[2018-04-11] MEDS: NAPH,MB-DB/K PH,MBDB POWDER PACKET PO SCH (09:31)
[2018-04-11] MEDS: CALCIUM 500MG/VIT-D 200 UNITS COMBO TABLET (FP) PO SCH (09:31)
[2018-04-11] MEDS: MULTIVITAMINS (DAILY MVI) TABLET (FP) PO SCH (09:31)
[2018-04-11] MEDS: amLODIPine BESYLATE 10 MG TABLET (FP) PO SCH (09:31)
[2018-04-11] MEDS: AMITRIPTYLINE HCL 25 MG TABLET (FP) PO SCH (09:31)
[2018-04-11] MEDS ORDERED: MAGNESIUM SULFATE IN WATER 2 GM/50 ML IVPB IVPB ONE (11:22)
[2018-04-11] MEDS ORDERED: POTASSIUM PHOSPHATE 15 MM in SODIUM CHLORIDE 250 ML IVPB ONE (11:23)
--- NOTE | 2018-04-11 18:05 | PN ---
Progress Note (short form) - Note Progress Note: for cystoscopy on 04/12/2018
[2018-04-12] MEDS: INSULIN SLIDING SCALE (NOVOLOG) 1 VIAL SQ SCH ×4 (07:27→22:52)
[2018-04-12 07:33] LABS: BASO % 2.9 % (0-2.0); EOS % 1.4 % (0-4.5); HEMATOCRIT 26.8 % (32.4-45.2); HEMOGLOBIN 8.7 GM/dl (10.7-15.3); LYMPH % 46.2 % (8-40); MCH 29.2 pg (25.7-33.7); MCHC 32.5 g/dl (32.0-36.0); MEAN CELL VOLUME 89.7 fl (80-96); MEAN PLT VOLUME 7.4 fl (7.5-11.1); MONO % 8.7 % (3.8-10.2); NEUT % 40.8 % (42.8-82.8); PLATELET COUNT 178 K/MM3 (134-434); RBC 2.99 M/mm3 (3.60-5.2); RDW 12.8 % (11.6-15.6); WHITE BLOOD COUNT 7.9 K/mm3 (4.0-10.8)
[2018-04-12 08:32] LABS: ANION GAP 4 MMOL/L (8-16); BLOOD UREA NITROGEN 15 mg/dl (7-18); CHLORIDE 110 mmol/L (98-107); CO2 20 mmol/L (22-28); CREATININE 0.9 mg/dl (0.6-1.3); GLUCOSE,RANDOM 90 mg/dl (74-106); PHOSPHOROUS 2.2 mg/dl (2.5-4.6); SODIUM 134 mmol/L (136-145)
[2018-04-12 08:49] LABS: INR 1.22 (0.82-1.09); PROTHROMBIN TIME (PATIENT) 13.6 SEC (10.2-13.0)
[2018-04-12] MEDS: LACTOBACILLUS ACIDOPHILUS 1 TABLET PO SCH (09:43)
[2018-04-12] MEDS: amLODIPine BESYLATE 10 MG TABLET (FP) PO SCH (09:43)
[2018-04-12] MEDS: CALCIUM 500MG/VIT-D 200 UNITS COMBO TABLET (FP) PO SCH (09:43)
[2018-04-12] MEDS: PANTOPRAZOLE 20 MG TABLET (FP) PO SCH (09:44)
[2018-04-12] MEDS: AMITRIPTYLINE HCL 25 MG TABLET (FP) PO SCH (09:44)
[2018-04-12] MEDS: MULTIVITAMINS (DAILY MVI) TABLET (FP) PO SCH (09:44)
--- NOTE | 2018-04-12 13:11 | PN ---
Physical Exam: SUBJECTIVE: Patient seen and examined, patient is sitting in bedside recliner awaiting cystcopy today, scheduled at 230pm OBJECTIVE: patient is a 72 year old female with a significant past medical history of CVA on plavix, HTN, and preDM. Patient was admitted from the emergency department for hematuria and urinary retention. Vital Signs Period Temp Pulse Resp BP Sys/Mcmullen Pulse Ox Last 24 Hr 97.8 F-99.3 F 72-96 18-20 111-147/38-53 95-100 GENERAL: The patient is awake, alert, and fully oriented, in no acute distress. HEAD: Normal with no signs of trauma. EYES: PERRL, extraocular movements intact, sclera anicteric, conjunctiva clear. No ptosis. ENT: Ears normal, nares patent, oropharynx clear without exudates, moist mucous membranes. NECK: Trachea midline, full range of motion, supple. LUNGS: Breath sounds equal, clear to auscultation bilaterally, no wheezes, no crackles, no accessory muscle use. HEART: Regular rate and rhythm, S1, S2 without murmur, rub or gallop. : sediment noted, yellow urine ABDOMEN: Soft, nontender, nondistended, normoactive bowel sounds, no guarding, no rebound, no hepatosplenomegaly, no masses. EXTREMITIES: 2+ pulses, warm, well-perfused, no edema. NEUROLOGICAL: Cranial nerves II through XII grossly intact. Normal speech, gait not observed. PSYCH: Normal mood, normal affect. SKIN: Warm, dry, normal turgor, no rashes or lesions noted Laboratory Results - last 24 hr 04/11/18 04/11/18 04/12/18 16:57 21:51 06:38 WBC RBC Hgb Hct MCV MCH MCHC RDW Plt Count MPV Absolute Neuts (auto) Neutrophils % Lymphocytes % Monocytes % Eosinophils % Basophils % Retic Count PT with INR INR Sodium Potassium Chloride Carbon Dioxide Anion Gap BUN Creatinine Creat Clearance w eGFR POC Glucometer 115 119 103 Random Glucose Calcium Phosphorus Magnesium Ferritin 04/12/18 04/12/18 04/12/18 07:16 07:16 07:16 WBC 7.9 RBC 2.99 L Hgb 8.7 L Hct 26.8 L MCV 89.7 MCH 29.2 MCHC 32.5 RDW 12.8 Plt Count 178 MPV 7.4 L Absolute Neuts (auto) 3.2 Neutrophils % 40.8 L Lymphocytes % 46.2 H Monocytes % 8.7 Eosinophils % 1.4 Basophils % 2.9 H Retic Count PT with INR 13.6 H INR 1.22 Sodium 134 L Potassium 4.0 Chloride 110 H Carbon Dioxide 20 L Anion Gap 4 L BUN 15 Creatinine 0.9 Creat Clearance w eGFR > 60 POC Glucometer Random Glucose 90 Calcium 9.0 Phosphorus 2.2 L Magnesium 2.0 Ferritin 04/12/18 04/12/18 04/12/18 07:30 07:30 12:14 WBC RBC Hgb Hct MCV MCH MCHC RDW Plt Count MPV Absolute Neuts (auto) Neutrophils % Lymphocytes % Monocytes % Eosinophils % Basophils % Retic Count 1.88 H PT with INR INR Sodium Potassium Chloride Carbon Dioxide Anion Gap BUN Creatinine Creat Clearance w eGFR POC Glucometer 91 Random Glucose Calcium Phosphorus Magnesium Ferritin 52.1 Active Medications Generic Name Dose Route Start Last Admin Trade Name Freq PRN Reason Stop Dose Admin Amitriptyline HCl 25 mg 04/09/18 10:00 04/12/18 09:44 Elavil - PO 25 mg DAILY CEE Administration Amlodipine Besylate 10 mg 04/09/18 10:00 04/12/18 09:43 Norvasc - PO 10 mg DAILY CEE Administration Calcium Carbonate/Cholecalciferol 1 tab 04/09/18 10:00 04/12/18 09:43 Os-Johnnie 500+D - PO 1 tab DAILY CEE Administration Insulin Aspart 1 vial 04/09/18 07:00 04/12/18 07:27 Novolog Vial Sliding Scale - SQ Not Given ACHS [facility] Protocol Lactobacillus Acidophilus 1 tab 04/09/18 12:15 04/12/18 09:43 Bacid - PO 1 tab DAILY CEE Administration Levofloxacin 250 mg 04/10/18 06:00 04/12/18 06:36 Levaquin - PO 250 mg DAILY@0600 CEE Administration Metoprolol Succinate 50 mg 04/09/18 10:00 04/12/18 09:44 Toprol Xl - PO 50 mg DAILY CEE Administration Multivitamins/Minerals/Vitamin C 1 tab 04/09/18 12:15 04/12/18 09:44 Tab-A-Vit - PO 1 tab DAILY CEE Administration Pantoprazole Sodium 20 mg 04/09/18 10:00 04/12/18 09:44 Protonix - PO 20 mg DAILY CEE Administration Microbiology 04/08/18 18:30 Urine - Urine Clean Catch Urine Culture - Final ECG Normal sinus rhythm vent rate 74, QTC 477 RBBB new T wave inversions lead 3 & v3 when c/w ECG 09/13/[address] [place]/pelvis with[place] [facility] [place] Impression: Distended, thick walled bladder with no focal intraluminal mass or filling defect. Findings may be secondary to cystitis. Correlate with urinalysis and symptoms. Normal kidneys and ureters with no hydronephrosis, renal stone, renal mass or ureteral filling defect. No evidence of malignancy within the abdomen or pelvis. Mosaic attenuation and ground-glass opacities scattered through both lower lobes may be secondary to pulmonary venous congestion. No large pleural effusion or consolidation. ultrasound of kidney/pelvis:normal kidneys no hydronephrosis moderate amount of urinary sediment urinary retention ASSESSMENT/PLAN: 1) UTI urinary retention - continue levaquin (04/09 - ), urine culture negative to date - patient is pending cystcopy today, Dr Montez consulted and following 2) nephrology NESS - resolved with gentle hydration and jessica, likely nsaid vs iv contrast induced vs obstructive uropathy - continue to monitor 3) cardiovascular hypertension - b/p at goal, continue norvasc and toprol 4) endo predm - as per patient and family no medications, hgb a1c elevated, will require outpatient follow up - continue finger sticks achs with regular insulin sliding scale f/e/n -regular diet DVT PPX - hold heparin due to bleeding - physical therapy - mechanical AC only FEN - bmp in am - low sodium/diabetic diet as tolerated Dispo: Pt currently requires inpatient admission Visit type - Emergency Visit Emergency Visit: Yes ED Registration Date: 04/09/18 Care time: The patient presented to the Emergency Department on the above date and was hospitalized for further evaluation of their emergent condition. - New Patient This patient is new to me today: No - Critical Care Critical Care patient: No - Discharge Referral Referred to [facility] Med P.C.: No
[2018-04-12] MEDS ORDERED: ONDANSETRON 4 MG/2 ML VIAL IVPUSH PRN (15:41)
[2018-04-12] MEDS ORDERED: PROMETHAZINE HCL 25 MG/1 ML VIAL IVPB PRN (15:41)
[2018-04-12] MEDS ORDERED: LACTATED RINGERS SOLUTION 1,000 ML IV SCH (15:45)
[2018-04-12] MEDS ORDERED: LIDOCAINE HCL 2% JELLY 10 ML CARTRIDGE ONE (15:46)
[2018-04-12] MEDS ORDERED: PROPOFOL 20 ML ONE (16:02)
[2018-04-12] MEDS ORDERED: LIDOCAINE HCL/PF 2% SDV 5ML VIAL ONE (16:02)
[2018-04-12] MEDS ORDERED: ONDANSETRON 4 MG/2 ML VIAL ONE (16:28)
[2018-04-12] MEDS ORDERED: DEXAMETHASONE SOD PHOSPHATE 4 MG/1 ML VIAL ONE (16:28)
--- NOTE | 2018-04-12 17:47 | OP ---
DATE OF OPERATION: 04/12/2018 PREOPERATIVE DIAGNOSIS: Gross hematuria. POSTOPERATIVE DIAGNOSIS: Gross hematuria. PROCEDURE: Cystoscopy, bladder biopsy, fulguration. FINDINGS: Cystitis. BIOPSY: Bladder biopsy. ESTIMATED BLOOD LOSS: 5 mL. ANESTHESIA: LMA. ANESTHESIOLOGIST: MD Jayla SURGEON: Christophe Darden MD INDICATIONS: Patient is a 72-year-old female who comes in with gross hematuria. CT scan was negative for upper tract disease as well as ultrasound. There was some suggestion of cystitis. Patient comes to the OR for cystoscopy. OPERATION: Patient was brought to the OR, placed on the table in supine position, given general anesthesia and IV antibiotics and placed in the lateral lithotomy position. The groin was prepped and draped sterilely. Cystoscopy was performed. Urethra was normal. The bladder had severe cystitis throughout. No discrete tumors were seen. Both ureteral orifices were visualized and were normal. Clear efflux came from both sides. An area of cystitis along the left lateral wall was biopsied, and a cold cup biopsy forceps and the base of the biopsy was then fulgurated with the Bugbee electrode. No bleeding was seen at the end of the case. Bladder was emptied. The patient was woken up. Laura [id number]
[2018-04-13] MEDS: INSULIN SLIDING SCALE (NOVOLOG) 1 VIAL SQ SCH (06:45)
[2018-04-13 06:51] VITALS: BP 144/26; PULSE 73; TEMP 98.4
[2018-04-13 08:06] LABS: SERUM IRON SATURATION 17 % (15-55); TOTAL IRON BINDING CAPACITY 207 ug/dL (250-450); UIBC 171 ug/dL (118-369)
--- NOTE | 2018-04-13 08:38 | DS ---
Physical Exam: SUBJECTIVE: Patient seen and examined, tolerating diet, denies any tactile, voiding independently, pink tinged urine. OBJECTIVE: Patient is a 72 year old female with a significant past medical history of CVA on plavix, HTN, preDM who presented to the ED with hematuria with clots. Pt was evaluated at [facility] for same on Monday night into Monday. She was diagnosed with a UTI and started on levaquin. She came to the ED because the family noticed she passed a blood clot when they were showering her around noon. Pt denies pain, dysuria, frequency. Family reports that she is normally incontinent of urine. NO further clots since noon. diapers are wet as normal. ER course was notable for: (1) Cr 2.2 (2) u/a with RBC and WBC (3) Na 132 Vital Signs Period Temp Pulse Resp BP Sys/Mcmullen Pulse Ox Last 24 Hr 97.4 F-98.4 F 73-96 17-19 112-145/26-53 95-99 PHYSICAL EXAM GENERAL: The patient is awake, alert, and fully oriented, in no acute distress. HEAD: Normal with no signs of trauma. EYES: PERRL, extraocular movements intact, sclera anicteric, conjunctiva clear. ENT: Ears normal, nares patent, oropharynx clear without exudates, moist mucous membranes. NECK: Trachea midline, full range of motion, supple. LUNGS: Breath sounds equal, clear to auscultation bilaterally, no wheezes, no crackles, no accessory muscle use. HEART: Regular rate and rhythm, S1, S2 without murmur, rub or gallop. ABDOMEN: Soft, nontender, nondistended, normoactive bowel sounds, no guarding, no rebound, no hepatosplenomegaly, no masses. EXTREMITIES: 2+ pulses, warm, well-perfused, no edema. NEUROLOGICAL: Cranial nerves II through XII grossly intact. Normal speech, gait not observed. PSYCH: Normal mood, normal affect. SKIN: Warm, dry, normal turgor, no rashes or lesions noted. LABS Laboratory Results - last 24 hr 04/12/18 04/12/18 04/12/18 07:16 07:16 07:30 Retic Count PT with INR 13.6 H INR 1.22 Sodium 134 L Potassium 4.0 Chloride 110 H Carbon Dioxide 20 L Anion Gap 4 L BUN 15 Creatinine 0.9 Creat Clearance w eGFR > 60 POC Glucometer Random Glucose 90 Calcium 9.0 Phosphorus 2.2 L Magnesium 2.0 Iron 36 TIBC 207 L Iron Saturation 17 Ferritin 04/12/18 04/12/18 04/12/18 07:30 07:30 12:14 Retic Count 1.88 H PT with INR INR Sodium Potassium Chloride Carbon Dioxide Anion Gap BUN Creatinine Creat Clearance w eGFR POC Glucometer 91 Random Glucose Calcium Phosphorus Magnesium Iron TIBC Iron Saturation Ferritin 52.1 04/12/18 04/13/18 22:25 06:42 Retic Count PT with INR INR Sodium Potassium Chloride Carbon Dioxide Anion Gap BUN Creatinine Creat Clearance w eGFR POC Glucometer 136 121 Random Glucose Calcium Phosphorus Magnesium Iron TIBC Iron Saturation Ferritin Microbiology 04/08/18 18:30 Urine - Urine Clean Catch Urine Culture - Final, negative ECG Normal sinus rhythm vent rate 74, QTC 477 RBBB new T wave inversions lead 3 & v3 when c/w ECG 09/13/[address] Abd/pelvis with/without contrast @ [facility] [place] 04/07/18 Impression: Distended, thick walled bladder with no focal intraluminal mass or filling defect. Findings may be secondary to cystitis. Correlate with urinalysis and symptoms. Normal kidneys and ureters with no hydronephrosis, renal stone, renal mass or ureteral filling defect. No evidence of malignancy within the abdomen or pelvis. Mosaic attenuation and ground-glass opacities scattered through both lower lobes may be secondary to pulmonary venous congestion. No large pleural effusion or consolidation. ultrasound of kidney/pelvis:normal kidneys no hydronephrosis moderate amount of urinary sediment urinary retention HOSPITAL COURSE: Patient was admitted from the emergency department for UTI and urinary retention. Patient was treated with levaquin (04/09 - ). Urine culture negative to date Urology, Dr Montez consulted cystcopy performed on 2017 biopsies completed awaiting results. Patient was noted to have NESS upon admission. NESS resolved with gentle hydration and jessica, likely nsaid vs iv contrast induced vs obstructive uropathy. Creatinine is now WNL. Patient has a past medical history of hypertension, blood pressure remained at goal, Norvasc and Toprol was continued. 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 Patient has a past medical history of hyperglycemia, hemoglobin A1c was noted to be elevated, patient will require outpatient follow- up, fingersticks before meals and at bedtime of regular insulin sliding-scale was continued throughout admission. PLAN: - discharge home with VNS - continue levaquin 250mg for the next 5 day - strict follow up with urology within 1 week - continue to hold hctz and follow up with pcp within 5 days for repeat labwork - return precautions reviewed, ie fever, abdominal pain, urinary retention, patient advised to return to the emergency department - discharge plan reviewed With patient and daughter all questions answered patient and daughter verbalized understanding. Date of Admission:04/09/18 Date of Discharge: 04/13/18 Minutes to complete discharge: 45 Discharge Summary Reason For Visit: HEMATURIA Current Active Problems Acute cystitis with hematuria (Acute) - Instructions Diet, Activity, Other Instructions: Continue Levaquin 250 mg daily for the next 5 days please take Levaquin with food. Continue to hold hydrochlorothiazide. Please follow-up with your primary care physician within 5 days for a repeat BMP continue all medications as prescribed continue low sodium diabetic diet Please follow-up with the urologist within one week if any new or persistent symptoms develop please return to emergency department. Referrals: Hesham Landavedre [Primary Care Provider] - 04/18/18 (Post discharge visit Repeat BMP) Christophe Darden MD [Staff Physician] - 1 Week Disposition: VNS/HOME HEALTH CARE - Home Medications Comprehensive Discharge Medication List: Ambulatory Orders Amlodipine Besylate 10 mg PO DAILY 09/13/16 Metoprolol Succinate [Toprol Xl -] 50 mg PO DAILY 09/13/16 Amitriptyline HCl 25 mg PO DAILY 04/08/18 Calcium Carbonate/Vitamin D3 [Calcium 600 + D3 Softgel] 1 each PO DAILY Clopidogrel Bisulfate [Clopidogrel] 75 mg PO DAILY 04/08/18 Hydrochlorothiazide [Hctz -] 25 mg PO DAILY 04/08/18 Levofloxacin [Levaquin] 250 mg PO DAILY 04/08/18 Naproxen 500 mg PO BID 04/08/18 Omeprazole 20 mg PO DAILY 04/08/18 This patient is new to me today: No Emergency Visit: Yes ED Registration Date: 04/09/18 Care time: The patient presented to the Emergency Department on the above date and was hospitalized for further evaluation of their emergent condition. Critical Care patient: No - Discharge Referral Referred to [facility] Med P.C.: No
[2018-04-13] MEDS ORDERED: CLOPIDOGREL BISULFATE 75 MG TABLET (FP) PO SCH (10:00)
[2018-04-13] MEDS: PANTOPRAZOLE 20 MG TABLET (FP) PO SCH (10:07)
[2018-04-13] MEDS: amLODIPine BESYLATE 10 MG TABLET (FP) PO SCH (10:07)
[2018-04-13] MEDS: AMITRIPTYLINE HCL 25 MG TABLET (FP) PO SCH (10:08)
[2018-04-13] MEDS: MULTIVITAMINS (DAILY MVI) TABLET (FP) PO SCH (10:08)
[2018-04-13] MEDS: CALCIUM 500MG/VIT-D 200 UNITS COMBO TABLET (FP) PO SCH (10:08)
[2018-04-13] MEDS: LACTOBACILLUS ACIDOPHILUS 1 TABLET PO SCH (10:09)
--- NOTE | 2018-04-17 09:33 | PATH ---
Surgical Pathology Report Patient Name: BERT SILVESTRE Med. Rec. #: [id number] /Age/Gender: 1945 (Age: 72) / F Account: [id number] Location: [facility] MED-SURG Taken: 04/12/2018 Received: 04/12/2018 Reported: 04/17/2018 Physicians: Laura Washington M.D. Specimen(s) Received BLADDER BIOPSY Clinical History Gross hematuria Final Diagnosis BLADDER, BIOPSY: PREDOMINANTLY DENUDED BLADDER MUCOSA WITH MARKED ACUTE AND CHRONIC CYSTITIS, GRANULATION TISSUE, AND REACTIVE CHANGES. Electronically Signed Krista Nazario M.D. Gross Description Received in formalin, labeled "bladder biopsy" is a nugent, irregular portion of soft tissue measuring 0.5 cm. in greatest dimension. The specimen is submitted in toto in one cassette. 04/13/201804/13/2018
== END 2018-04-13 14:00 | disposition home or self-care (01) | DRG 669 ==
LOC: FER 18:17 → FM/S 20:55 → OBSVTOIN 04-09 13:24
PROVIDERS: ADMIT Emergency Medicine; ATTEND Nurse Practitioner Family
PROC: 0T5B8ZZ Destruction of Bladder, Via Natural or Artificial Opening Endoscopic (ICD-10-PCS; 2018-04-12)
PROC: 0TJB8ZZ Inspection of Bladder, Via Natural or Artificial Opening Endoscopic (ICD-10-PCS; 2018-04-12)
PROC: 0TBB8ZX Excision of Bladder, Via Natural or Artificial Opening Endoscopic, Diagnostic (ICD-10-PCS; principal; 2018-04-12 16:28)
DX: N30.01 Acute cystitis with hematuria (principal); N17.9 Acute kidney failure, unspecified; E87.1 Hypo-osmolality and hyponatremia; N30.21 Other chronic cystitis with hematuria; I10 Essential (primary) hypertension
CPT/HCPCS: 36415; 76775-TC; 76856-TC; 80048; 80053; 81003; 81015; 82728; 82962; 83036; 83540; 83550; 83735; 84100; 85025; 85044; 85610; 85730; 87086; 88305-TC; 93005; 94760; 97116-GP; 97161-GP; 99283-25; G0378; J7030

== ENCOUNTER 2025-03-05 18:49 | Emergency (ER) | payer OTHER ==
[2025-03-05 19:01] VITALS: BP 166/37; PULSE 77; RESP 18; TEMP 97.8; BMI 19.9
[2025-03-05] MEDS: SODIUM CHLORIDE 500 ML IV STA (20:11)
[2025-03-05 20:26] LABS: ABSOLUTE IMMATURE GRANULOCYTES 0.02 x10^3/uL (0.0-0.031); BASOPHILS # 0.04 x10^3/uL (0.01-0.08); EOSINOPHIL % 2.2 % (0.7-5.8); EOSINOPHILS # 0.22 x10^3/uL (0.04-0.36); MCHC 31.2 g/dl (32.2-35.5); MEAN CELL VOLUME 90.7 fl (79.4-94.8); MEAN PLT VOLUME 9.6 fl (9.4-12.3); MONOCYTE # 0.76 x10^3/uL (0.24-0.86); MONOCYTE % 7.5 % (4.7-12.5); RDW 16.5 % (12.4-16.6)
[2025-03-05 20:46] LABS: ALK PHOS 92.0 U/L (45-117); CO2 27.0 mmol/L (21-32); CREATININE 0.4 mg/dl (0.6-1.3); GLUCOSE,RANDOM 74.0 mg/dl (74-106); SGOT/AST 27.0 U/L (15-37); SGPT/ALT 9.0 U/L (7-52); TOT PROT 6.8 g/dl (6.4-8.2)
== END 2025-03-05 21:56 | disposition home or self-care (01) ==
LOC: EDBD 18:49 → FER 18:49
PROC: 3E0337Z Introduction of Electrolytic and Water Balance Substance into Peripheral Vein, Percutaneous Approach (ICD-10-PCS; principal; 2025-03-05)
DX: N39.0 Urinary tract infection, site not specified (principal); R62.7 Adult failure to thrive
CPT/HCPCS: 36415; 71045-TC-FY; 80053; 81003; 81015; 85025; 87086; 99284-25